=== PATIENT | female | born 1990 | race Two or more races ===

== ENCOUNTER 2019-12-19 16:52 | Inpatient (IN) | payer BC ==
[~2019-12-19] VITALS: Ht 157.5 cm; Wt 108.0 kg
[2019-12-26] MEDS ORDERED: METOCLOPRAMIDE 5 MG/ML, 2ML IV ONE (10:30)
[2019-12-26] MEDS ORDERED: SODIUM CITRATE/CITRIC ACID 30 ML UDC PO ONE (10:30)
[2019-12-26] MEDS ORDERED: LACTATED RINGERS 1,000 ML IVBOLUS ONE (10:30)
[2019-12-26] MEDS ORDERED: NEWBORN KIT ONE (10:32)
[2019-12-26] MEDS ORDERED: OXYTOCIN 30U/ 0.9% NaCL 500ML 500 ML ONE (10:43)
[2019-12-26] MEDS ORDERED: METOCLOPRAMIDE 5 MG/ML, 2ML ONE (10:43)
[2019-12-26] MEDS ORDERED: FENTANYL PF 100 MCG/2ML ONE (10:47)
[2019-12-26] MEDS ORDERED: KETOROLAC 30 MG/1 ML ONE (10:48)
[2019-12-26] MEDS ORDERED: CEFAZOLIN 1,000 MG ONE ×2 (10:48)
[2019-12-26] MEDS ORDERED: OXYTOCIN 10 UNITS/ML, 1ML ONE ×4 (10:48)
[2019-12-26 10:59] LABS: BASOPHILS # (AUTO) 0.03 x10^3/uL (0-0.1); BASOPHILS % (AUTO) 0 % (0-1); EOSINOPHILS # (AUTO) 0.16 x10^3/uL (0-0.4); EOSINOPHILS % (AUTO) 2 % (1-7); LYMPHOCYTES # (AUTO) 2.13 x10^3/uL (1-3.4); LYMPHOCYTES % (AUTO) 21 % (22-44); MD NO; MEAN CORPUSCULAR HEMOGLOBIN 29.7 pg (27.0-34.8); MEAN CORPUSCULAR HGB CONC 33.1 g/dL (32.4-35.8); MEAN CORPUSCULAR VOLUME 89.9 fL (80-100); MEAN PLATELET VOLUME 8.8 fL (7.4-10.4); MONOCYTES # (AUTO) 0.72 x10^3/uL (0.2-0.8); MONOCYTES % (AUTO) 7 % (2-9); NEUTROPHILS # (AUTO) 7.26 x10^3/uL (1.8-6.8); NEUTROPHILS % (AUTO) 71 % (42-75); PLATELET COUNT 258 x10^3/uL (130-400); RED BLOOD COUNT 3.89 x10^6/uL (3.82-5.3); RED CELL DISTRIBUTION WIDTH 14.4 % (9.6-15.2)
[2019-12-26] MEDS ORDERED: PLEASE ENTER HEIGHT AND WEIGHT MC SCH (11:00)
[2019-12-26] MEDS: PLEASE ENTER ALLERGIES MC SCH ×2 (11:00→19:00)
[2019-12-26] MEDS ORDERED: DIPH,PERTUSS(ACELL),TET VAC/PF NC IM-VACC ONE ×2 (11:22→12:00)
[2019-12-26] MEDS: LACTATED RINGERS 1,000 ML IV SCH ×6 (11:35→23:47)
[2019-12-26] MEDS ORDERED: ONDANSETRON 2MG/ML, 2ML ONE (12:30)
[2019-12-26] MEDS ORDERED: EPHEDRINE 50 MG/ML, 1ML ONE (12:45)
[2019-12-26] MEDS ORDERED: ONDANSETRON 2MG/ML, 2ML IVPush PRN (13:30)
[2019-12-26] MEDS ORDERED: PROMETHAZINE 25 MG/ML, 1ML IVPush PRN (13:30)
[2019-12-26] MEDS ORDERED: FENTANYL PF 100 MCG/2ML IV PRN (13:30)
[2019-12-26] MEDS ORDERED: DIPHENHYDRAMINE 50 MG/ML, 1ML IVPush PRN (13:30)
[2019-12-26] MEDS ORDERED: LABETALOL 5MG/ML, 20ML IV PRN (13:30)
[2019-12-26] MEDS ORDERED: EPHEDRINE 50 MG/ML, 1ML IVPush PRN (13:30)
[2019-12-26] MEDS ORDERED: morphine SULFATE 10 MG/ML, 1ML IVPush PRN (13:30)
[2019-12-26] MEDS ORDERED: OXYcodone 5 MG/5 ML ORAL.SOL UDC PO PRN (13:30)
[2019-12-26] MEDS: OXYTOCIN 30U/ 0.9% NaCL 500ML 500 ML IV SCH ×2 (13:47→23:47)
[2019-12-26] MEDS ORDERED: ACETAMINOPHEN 325 MG TABLET PO PRN ×2 (14:00)
[2019-12-26] MEDS ORDERED: MISOPROSTOL 200 MCG TABLET PR PRN (14:00)
[2019-12-26] MEDS ORDERED: OXYcodone/APAP 5/325MG TABLET PO PRN (14:00)
[2019-12-26] MEDS ORDERED: METHYLERGONOVINE 0.2 MG/ML IM PRN (14:00)
[2019-12-26] MEDS ORDERED: ONDANSETRON 2MG/ML, 2ML IV PRN (14:00)
[2019-12-26] MEDS ORDERED: CARBOPROST TROMETHAMINE 250 MCG/ML, 1ML IM PRN (14:00)
[2019-12-26] MEDS ORDERED: HYDROcodone/APAP 5/325 TABLET PO PRN ×2 (14:00)
[2019-12-26] MEDS ORDERED: SIMETHICONE 80 MG CHEW TAB PO PRN (14:00)
[2019-12-26 15:20] VITALS: BP 121/78
[2019-12-26] MEDS: KETOROLAC 30 MG/1 ML IV SCH (18:59)
[2019-12-26 20:24] VITALS: BP 135/76
[2019-12-26 20:46] LABS: BASOPHILS # (AUTO) 0.02 x10^3/uL (0-0.1); BASOPHILS % (AUTO) 0 % (0-1); EOSINOPHILS # (AUTO) 0.04 x10^3/uL (0-0.4); EOSINOPHILS % (AUTO) 0 % (1-7); LYMPHOCYTES % (AUTO) 15 % (22-44); MD NO; MEAN CORPUSCULAR HEMOGLOBIN 30.3 pg (27.0-34.8); MEAN CORPUSCULAR HGB CONC 33.8 g/dL (32.4-35.8); MEAN CORPUSCULAR VOLUME 89.6 fL (80-100); MEAN PLATELET VOLUME 8.4 fL (7.4-10.4); MONOCYTES # (AUTO) 0.82 x10^3/uL (0.2-0.8); MONOCYTES % (AUTO) 6 % (2-9); NEUTROPHILS # (AUTO) 10.36 x10^3/uL (1.8-6.8); NEUTROPHILS % (AUTO) 78 % (42-75); PLATELET COUNT 219 x10^3/uL (130-400); RED CELL DISTRIBUTION WIDTH 13.9 % (9.6-15.2)
[2019-12-26 23:59] VITALS: BP 138/89
[2019-12-27] MEDS: KETOROLAC 30 MG/1 ML IV SCH ×5 (01:17→22:11)
[2019-12-27] MEDS: LACTATED RINGERS 1,000 ML IV SCH ×2 (02:24→05:47)
[2019-12-27] MEDS: PLEASE ENTER ALLERGIES MC SCH (03:00)
[2019-12-27 04:18] VITALS: BP 122/72
[2019-12-27] MEDS: OXYcodone/APAP 5/325MG TABLET PO PRN ×3 (05:40→22:12)
[2019-12-27 07:00] VITALS: BP 114/72
[2019-12-27 12:00] VITALS: BP 127/84
[2019-12-27] MEDS: DOCUSATE 100 MG CAPSULE PO PRN ×2 (12:17→22:11)
[2019-12-27] MEDS: PRENATAL VIT/IRON/FA 1 EACH TABLET PO SCH (12:17)
[2019-12-27 20:00] VITALS: BP 117/74
[2019-12-28] MEDS: IBUPROFEN 600 MG TABLET PO PRN ×3 (04:55→17:48)
[2019-12-28] MEDS: OXYcodone/APAP 5/325MG TABLET PO PRN ×3 (04:56→15:32)
[2019-12-28 08:47] VITALS: BP 130/87
[2019-12-28] MEDS: PRENATAL VIT/IRON/FA 1 EACH TABLET PO SCH (08:55)
[2019-12-28] MEDS: DOCUSATE 100 MG CAPSULE PO PRN (08:55)
[2019-12-28] MEDS ORDERED: DOCU-131 PO (14:23)
[2019-12-28] MEDS ORDERED: OXYC-302 PO (14:24)
[2019-12-28] MEDS ORDERED: IBUP-1223 PO (14:25)
== END 2019-12-28 20:55 | disposition home or self-care (01) | DRG 788 ==
LOC: LDIP 12-26 10:11 → 2NW 12-26 15:00
PROVIDERS: ADMIT Obstetrics & Gynecology; ATTEND Obstetrics & Gynecology
PROC: 10D00Z1 Extraction of Products of Conception, Low, Open Approach (ICD-10-PCS; principal; 2019-12-26)
DX: O36.63X0 Maternal care for excessive fetal growth, third trimester, not applicable or unspecified (principal); Z37.0 Single live birth; Z3A.39 39 weeks gestation of pregnancy; Z20.828 Contact with and (suspected) exposure to other viral communicable diseases
CPT/HCPCS: 36415; 85025; 86592; 86850; 86900; 87635; 90715; G0378; J0690; J1885; J2405; J3010; J2590; J2765; J7120